=== PATIENT | male | born 1965 | race Hispanic/Latino ===

== ENCOUNTER 2024-02-18 16:34 | Emergency (ER) | payer MEDICAID ==
[~2024-02-18] VITALS: Ht 172.7 cm; Wt 90.7 kg
[~2024-02-18 16:34] MED LIST: BENZONATATE200 MG PO; PREDNISONE20 MG PO; VENTOLIN HFA108 MCG IN
[2024-02-18 16:39] VITALS: BP 183/101
[2024-02-18 16:45] VITALS: BP 154/90
[2024-02-18] MEDS ORDERED: SODIUM CHLORIDE 0.9% 1,000 ML IV ONE (16:50)
[2024-02-18 17:08] LABS: BASO% 0.3 % (0-3); EOS% 3.2 % (0-8); HEMATOCRIT 40.5 % (39.0-50.0); HEMOGLOBIN 14.1 g/dl (14.0-18.0); IMMATURE GRANULOCYTES 0.3 % (0.0-5.0); LYMPH% 42.3 % (15-41); MEAN CELL VOLUME 82.2 fL CALC (80.0-100.0); MEAN CORPUSCULAR HGB 28.6 pG CALC (26.0-32.0); MEAN CORPUSCULAR HGB CONC 34.8 g/dL CAL (32.0-36.0); MONO% 7.4 % (2-13); NEUT# 3.6 thou/uL (1.82-7.42); NEUT% 46.5 % (42-76); RED BLOOD COUNT 4.93 mill/uL (4.70-6.10); RED CELL DISTRI WIDTH 13.2 % (11.5-15.5)
[2024-02-18 17:19] LABS: ALBUMIN 4.5 g/dL (3.2-5.0); BILIRUBIN, TOTAL 0.6 mg/dL (0.2-1.3); CREATININE 1.2 mg/dL (0.7-1.3); POTASSIUM 4.5 mmol/l (3.5-5.1); TOTAL PROTEIN 7.8 g/dL (6.3-8.2)
[2024-02-18 20:20] VITALS: BP 154/90
== END 2024-02-18 20:20 | disposition home or self-care (01) ==
LOC: ED 16:34
PROVIDERS: Family Medicine
DX: R50.9 Fever, unspecified (principal); I10 Essential (primary) hypertension; E66.9 Obesity, unspecified; Z20.822 Contact with and (suspected) exposure to COVID-19